=== PATIENT | female | born 1970 | race Two or more races ===

== ENCOUNTER 2017-05-13 07:16 | Outpatient (CLI) | payer OTHER ==
[~2017-05-13 07:16] MED LIST: ANTIVERT25 M1 PO; CALAN80 MG; COZAAR25 MG; COZAAR50 MG; DOLOBID500 MG; DRAMAMINE50 M1; LEVAQUIN500 MG; LEVSIN0.125 MG; METOPROLOL SUCC50 MG; NABUMETONE500 MG PO; NABUMETONE750 MG PO; NORFLEX100MG PO; ORPH100T PO; SYNTEST D.S TAB1 TAB; SYNTHROID112 MCG; SYNTHROID125 MCG; TOPROL XL50 M1; URIN D.S. TABLE1 TAB; ZESTRIL10 M1
== END 2017-05-13 08:03 | disposition home or self-care (01) ==
LOC: MAMO-SONO 07:16
DX: N60.11 Diffuse cystic mastopathy of right breast (principal); N60.12 Diffuse cystic mastopathy of left breast; N64.4 Mastodynia

== ENCOUNTER → 2017-07-09 | Emergency (ER) | payer OTHER ==
[~2017-07-09] VITALS: Ht 167.6 cm; Wt 66.2 kg
== END | disposition home or self-care (01) ==
LOC: ER 20:30
DX: K29.70 Gastritis, unspecified, without bleeding (principal); R51 Headache; R11.0 Nausea

== ENCOUNTER 2018-01-08 00:28 | Emergency (ER) | payer OTHER ==
[~2018-01-08] VITALS: Ht 167.6 cm; Wt 67.1 kg
[2018-01-08] MEDS ORDERED: TENORMIN25 MG (00:40)
== END 2018-01-08 15:26 | disposition home or self-care (01) ==
LOC: ER 00:28
DX: R21 Rash and other nonspecific skin eruption (principal)

== ENCOUNTER 2018-02-06 10:54 | Outpatient (CLI) | payer OTHER ==
[~2018-02-06 10:54] MED LIST changes: +TENORMIN25 MG
== END 2018-02-06 11:00 | disposition home or self-care (01) ==
LOC: SONOGRAMA 10:54
DX: R10.84 Generalized abdominal pain (principal)

== ENCOUNTER 2018-05-06 18:38 | Emergency (ER) | payer OTHER ==
[~2018-05-06] VITALS: Ht 167.6 cm; Wt 67.6 kg
[2018-05-06] MEDS ORDERED: NORVASC10 MG PO (19:19)
== END 2018-05-06 23:02 | disposition home or self-care (01) ==
LOC: ER 18:38
DX: B34.9 Viral infection, unspecified (principal)

== ENCOUNTER → 2018-08-01 | Emergency (ER) | payer OTHER ==
[~2018-08-01] VITALS: Ht 167.6 cm; Wt 67.1 kg
[~2018-08-01] MED LIST changes: +ATENOLOL25 MG; +NORVASC10 MG PO
== END | disposition home or self-care (01) ==
LOC: ER 23:29
DX: G43.909 Migraine, unspecified, not intractable, without status migrainosus (principal)

== ENCOUNTER 2019-06-22 21:02 | Emergency (ER) | payer OTHER ==
[~2019-06-22] VITALS: Ht 167.6 cm; Wt 67.1 kg
== END 2019-06-22 22:38 | disposition home or self-care (01) ==
LOC: ER 21:02
DX: K59.09 Other constipation (principal); M79.661 Pain in right lower leg

== ENCOUNTER 2021-06-03 07:23 | Emergency (ER) | payer OTHER ==
[~2021-06-03] VITALS: Ht 157.5 cm; Wt 62.6 kg
[2021-06-03] MEDS ORDERED: COZAAR25 MG (07:35)
[2021-06-03] MEDS ORDERED: CIPRO500 MG PO (12:02)
[2021-06-03] MEDS ORDERED: KETO10TA2 PO (12:02)
== END 2021-06-03 12:11 | disposition home or self-care (01) ==
LOC: ER 07:23
DX: S90.111A Contusion of right great toe without damage to nail, initial encounter (principal); N39.0 Urinary tract infection, site not specified; B96.29 Other Escherichia coli [E. coli] as the cause of diseases classified elsewhere; R31.29 Other microscopic hematuria; R30.0 Dysuria

== ENCOUNTER 2021-06-17 18:54 | Emergency (ER) | payer OTHER ==
[~2021-06-17] VITALS: Ht 167.6 cm; Wt 63.0 kg
[~2021-06-17 18:54] MED LIST changes: +CIPRO500 MG PO; +KETO10TA2 PO
[2021-06-17] MEDS ORDERED: NORFLEX100MG PO (20:43)
== END 2021-06-17 20:55 | disposition home or self-care (01) ==
LOC: ER 18:54
DX: S30.0XXA Contusion of lower back and pelvis, initial encounter (principal); W18.30XA Fall on same level, unspecified, initial encounter; Y93.9 Activity, unspecified; Y92.9 Unspecified place or not applicable; Y99.9 Unspecified external cause status; R25.2 Cramp and spasm; M62.838 Other muscle spasm; E03.9 Hypothyroidism, unspecified; Z88.6 Allergy status to analgesic agent

== ENCOUNTER 2021-09-27 23:00 | Emergency (ER) | payer OTHER ==
[~2021-09-27] VITALS: Ht 165.1 cm; Wt 61.2 kg
[2021-09-28] MEDS ORDERED: COZAAR100 MG (00:03)
[2021-09-28] MEDS ORDERED: GLUMETZA500 MG (00:04)
[2021-09-28] MEDS ORDERED: SYNTHROID125 MCG (00:04)
[2021-09-28] MEDS ORDERED: ATORVASTATIN CA10 MG (00:05)
[2021-09-28] MEDS ORDERED: ONDANSETRON ODT4 MG PO (06:14)
[2021-09-28] MEDS ORDERED: PEPCID40 MG PO (06:14)
== END 2021-09-28 06:18 ==
LOC: ER 23:00
DX: R11.2 Nausea with vomiting, unspecified (principal); R53.81 Other malaise; R53.83 Other fatigue; I10 Essential (primary) hypertension; E11.9 Type 2 diabetes mellitus without complications; Z79.84 Long term (current) use of oral hypoglycemic drugs

== ENCOUNTER 2021-09-28 07:11 | Outpatient (CLI) | payer OTHER ==
[~2021-09-28 07:11] MED LIST changes: +ATORVASTATIN CA10 MG; +COZAAR100 MG; +GLUMETZA500 MG; +ONDANSETRON ODT4 MG PO; +PEPCID40 MG PO
== END 2021-09-28 07:23 | disposition home or self-care (01) ==
LOC: RAD 07:11
DX: M54.2 Cervicalgia (principal); M99.01 Segmental and somatic dysfunction of cervical region; M54.6 Pain in thoracic spine; M99.02 Segmental and somatic dysfunction of thoracic region; M54.51 Vertebrogenic low back pain; M99.03 Segmental and somatic dysfunction of lumbar region; M54.40 Lumbago with sciatica, unspecified side

== ENCOUNTER 2021-12-08 21:26 | Emergency (ER) | payer OTHER ==
[~2021-12-08] VITALS: Ht 162.6 cm; Wt 63.5 kg
[2021-12-08] MEDS ORDERED: SYNTHROID137 MCG (21:36)
[2021-12-09] MEDS ORDERED: RELAFEN DS1000 MG PO (02:00)
== END 2021-12-09 02:16 ==
LOC: ER 21:26
DX: I10 Essential (primary) hypertension (principal); G44.209 Tension-type headache, unspecified, not intractable; Z88.8 Allergy status to other drugs, medicaments and biological substances; E11.9 Type 2 diabetes mellitus without complications; Z79.84 Long term (current) use of oral hypoglycemic drugs

== ENCOUNTER 2022-01-01 20:33 | Emergency (ER) | payer OTHER ==
[~2022-01-01] VITALS: Ht 167.6 cm; Wt 62.6 kg
[~2022-01-01 20:33] MED LIST changes: +RELAFEN DS1000 MG PO; +SYNTHROID137 MCG
== END 2022-01-01 23:48 | disposition home or self-care (01) ==
LOC: ER 20:33
DX: R10.13 Epigastric pain (principal); I10 Essential (primary) hypertension; Z88.8 Allergy status to other drugs, medicaments and biological substances

== ENCOUNTER 2022-01-04 08:57 | Outpatient (CLI) | payer OTHER | END 2022-01-04 08:58 | disposition home or self-care (01) | LOC: LAB 08:57 | PROVIDERS: ATTEND Specialist | DX: R10.9 Unspecified abdominal pain (principal) ==

== ENCOUNTER 2022-01-04 09:58 | Outpatient (CLI) | payer OTHER | END 2022-01-04 10:13 | disposition home or self-care (01) | LOC: TOM 09:58 | PROVIDERS: ATTEND Specialist | DX: R10.9 Unspecified abdominal pain (principal) ==

== ENCOUNTER 2022-11-01 17:46 | Emergency (ER) | payer OTHER ==
[~2022-11-01] VITALS: Ht 165.1 cm; Wt 62.6 kg
[2022-11-01] MEDS ORDERED: GLUMETZA1000 MG (18:08)
[2022-11-01] MEDS ORDERED: ASPIRIN81 MG PO (18:08)
[2022-11-01] MEDS ORDERED: OMEGA 3 1,0001 EACH PO (18:08)
== END 2022-11-01 22:39 | disposition home or self-care (01) ==
LOC: ER 17:46
DX: N39.0 Urinary tract infection, site not specified (principal); I10 Essential (primary) hypertension; E11.9 Type 2 diabetes mellitus without complications; Z79.84 Long term (current) use of oral hypoglycemic drugs; Z88.5 Allergy status to narcotic agent

== ENCOUNTER 2022-11-22 14:47 | Outpatient (CLI) | payer OTHER ==
[~2022-11-22 14:47] MED LIST changes: +ASPIRIN81 MG PO; +GLUMETZA1000 MG; +OMEGA 3 1,0001 EACH PO
== END 2022-11-22 15:01 | disposition home or self-care (01) ==
LOC: TOM 14:47
PROVIDERS: ATTEND Obstetrics & Gynecology
DX: R19.00 Intra-abdominal and pelvic swelling, mass and lump, unspecified site (principal)

== ENCOUNTER 2023-02-04 17:38 | Emergency (ER) | payer OTHER ==
[~2023-02-04] VITALS: Ht 167.6 cm; Wt 63.5 kg
[2023-02-04] MEDS ORDERED: ATORVASTATIN CA10 MG (17:57)
[2023-02-04] MEDS ORDERED: TENORMIN25 MG (17:57)
[2023-02-04] MEDS ORDERED: SYNTHROID125 MCG (17:57)
== END 2023-02-04 19:29 | disposition home or self-care (01) ==
LOC: ER 17:39
DX: M79.671 Pain in right foot (principal); Z88.6 Allergy status to analgesic agent